=== PATIENT | male | born 1955 | race Caucasian/White ===

== ENCOUNTER 2017-08-05 13:00 | Inpatient (IN) | payer OTHER ==
[2017-08-08 08:07] LABS: Cardiac Risk 3.5 (Less than 4.5)
[2017-09-19 10:13] VITALS: BMI 37.1
[2017-09-24] MEDS ORDERED: Sodium Chloride 0.9% 100 ML ONE (06:04)
[2017-09-24] MEDS ORDERED: CEFAZOLIN/Water 2 GM/20 ML SYRINGE ONE (06:04)
[2017-09-24] MEDS ORDERED: CEFAZOLIN 1 GM VIAL ONE (06:04)
[2017-09-24] MEDS ORDERED: Midazolam HCl 2 mg/2 ml Vial ONE (06:27)
[2017-09-24] MEDS ORDERED: Fentanyl 100 MCG/2 ML VIAL ONE (06:27)
[2017-09-24] MEDS ORDERED: Vancomycin HCl 1.5 GM in Sodium Chloride 0.9% 250 ML 300 ML IVPB SCH (06:30)
[2017-09-24] MEDS ORDERED: Zolpidem Tartrate 5 MG TAB PO PRN ×2 (07:05→09:00)
[2017-09-24] MEDS ORDERED: Ondansetron HCl/PF 4 MG/2 ML Vial IVP PRN ×3 (07:05→09:00)
[2017-09-24] MEDS ORDERED: HYDROcodone/Acetaminophen 10/325 mg Tablet PO PRN (07:05)
[2017-09-24] MEDS ORDERED: traMADol HCl 50 MG TAB PO PRN ×3 (07:05→09:00)
[2017-09-24] MEDS ORDERED: Promethazine HCl 25 MG/ML VIAL IM PRN ×3 (07:05→09:00)
[2017-09-24] MEDS ORDERED: Fentanyl 100 MCG/2 ML VIAL IV PRN (07:06)
[2017-09-24] MEDS ORDERED: Morphine 10 MG/ML VIAL ONE (07:34)
[2017-09-24] MEDS ORDERED: Promethazine HCl 25 MG/ML VIAL SLOW IVP PRN (07:46)
[2017-09-24] MEDS ORDERED: Bupivacaine PF 0.5% 30 ML VIAL ONE (08:13)
[2017-09-24] MEDS ORDERED: Tranexamic Acid 1,000 MG in Sodium Chloride 0.9% 100 ML IVPB SCH (09:00)
[2017-09-24] MEDS ORDERED: diphenhydrAMINE 25 MG CAP PO PRN (09:00)
[2017-09-24] MEDS ORDERED: Acetaminophen 325 MG TAB PO PRN (09:00)
[2017-09-24] MEDS ORDERED: Nitroglycerin 0.4 MG TAB (25 Tab Bottle) SL PRN (09:02)
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
--- NOTE | 2017-09-24 10:13 | RAD ---
LEFT KNEE TWO VIEWS: INDICATIONS: Postoperative evaluation. Knee replacement. FINDINGS: There is community acquired pneumonia osseous deformity with prior hardware tracks at the imaged dist al femur. There is a total left knee arthroplasty in place without evidence of hardware complication . Expected post procedure findings are seen, regionally. IMPRESSION: 1. Postoperative left knee without acute hardware complication. 2. Chronic deformity of the imaged distal left femur. POS: [facility]
[2017-09-24] MEDS ORDERED: Sodium Chloride 0.65% Nasal 44 ML BOT EA NARE PRN (10:33)
[2017-09-24] MEDS ORDERED: Loratadine 10 MG TAB PO PRN (10:33)
[2017-09-24] MEDS ORDERED: Diabetic Tussin 200 MG/10 ML UDCUP PO PRN (10:33)
[2017-09-24] MEDS ORDERED: Ondansetron ODT 4 MG TAB PO PRN (10:33)
[2017-09-24] MEDS ORDERED: Mag-Al 1200 mg/1200 mg/30 ML UDCUP PO PRN (10:33)
[2017-09-24] MEDS ORDERED: Milk Of Magnesia 30 ML UDCUP PO PRN (10:33)
[2017-09-24] MEDS ORDERED: Artificial Tear Sol 15 ML BOT EA EYE PRN (10:33)
[2017-09-24] MEDS ORDERED: Eucerin (Mineral Oil/Petrolatum,White) 30 gm Jar TOP PRN (10:33)
[2017-09-24] MEDS ORDERED: Bisacodyl 10 MG SUPP PR PRN (10:33)
[2017-09-24] MEDS: Aspirin 81 mg Enteric Coated Tablet PO SCH ×2 (10:43→20:13)
[2017-09-24] MEDS: Senokot S 8.6-50 MG TAB PO SCH ×2 (10:44→20:11)
[2017-09-24] MEDS: Multivitamin W/ Minerals 1 TAB PO SCH (10:44)
[2017-09-24] MEDS: Ferrous Gluconate 324 MG TAB PO SCH ×2 (10:44→20:12)
[2017-09-24] MEDS: Sodium Chloride 0.9% 1,000 ML IV SCH ×2 (10:45→18:08)
[2017-09-24] MEDS ORDERED: Bupivacaine 0.25% HCL 30 ML VIAL ONE (11:52)
[2017-09-24] MEDS ORDERED: Ropivacaine 0.5% HCl/PF (150 MG/30 ML VIAL) ONE (11:52)
[2017-09-24] MEDS ORDERED: Ketorolac Tromethamine 30 MG/ML VIAL IVP SCH (12:00)
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
[2017-09-24] MEDS ORDERED: Ketorolac Tromethamine 30 MG/ML VIAL ONE (13:28)
[2017-09-24] MEDS ORDERED: PHENYLEPHRINE-NS 100 MCG/ML 10 ML SYRINGE ONE (13:28)
[2017-09-24] MEDS ORDERED: Lidocaine 1% PF 5 ML VIAL ONE (13:28)
[2017-09-24] MEDS ORDERED: PROPOFOL 200 MG/20 ML VIAL ONE (13:28)
[2017-09-24] MEDS: Ketorolac Tromethamine 30 MG/ML VIAL IM SCH ×2 (14:02→21:15)
[2017-09-24] MEDS: Acetaminophen 500 MG TAB PO SCH ×2 (14:02→21:15)
[2017-09-24] MEDS: CEFAZOLIN/Water 2 GM/20 ML SYRINGE SLOW IVP SCH ×2 (14:06→21:15)
[2017-09-24] MEDS: Atorvastatin Calcium 40 MG TAB PO SCH (20:12)
[2017-09-24] MEDS: Famotidine 20 MG TAB PO SCH (20:12)
[2017-09-24] MEDS: Lisinopril 10 MG TAB PO SCH (20:13)
[2017-09-24] MEDS ORDERED: Aspirin 81 mg Enteric Coated Tablet PO SCH (21:00)
[2017-09-24] MEDS: Bupivacaine 0.5% 50 ML in Sodium Chloride 0.9% 50 ML NERVE BLCK SCH (21:08)
[2017-09-25 04:59] LABS: Hemoglobin 11.1 g/dL (14.0-18.0); Mean Corpuscular HGB CONC 34.1 g/dL (32.0-36.0); Mean Corpuscular Hemoglobin 33.7 pg (27.0-31.0); Mean Corpuscular Volume 98.8 fl (80.0-94.0); Mean Platelet Volume 6.7 fL (7.4-10.4); Platelet Count 104 thou/uL (130-400); RBC Distribution Width 11.8 % (11.5-14.5); Red Blood Cell (RBC) Count 3.31 mill/uL (4.70-6.10); White Blood Cell (WBC) Count 4.3 thou/uL (4.8-10.8)
[2017-09-25] MEDS: Sodium Chloride 0.9% 1,000 ML IV SCH ×2 (05:44→14:06)
[2017-09-25] MEDS: Ketorolac Tromethamine 30 MG/ML VIAL IM SCH ×3 (05:46→20:31)
[2017-09-25] MEDS: Acetaminophen 500 MG TAB PO SCH ×3 (05:48→20:27)
[2017-09-25] MEDS: Multivitamin W/ Minerals 1 TAB PO SCH (07:36)
[2017-09-25] MEDS: Senokot S 8.6-50 MG TAB PO SCH ×2 (07:36→20:24)
[2017-09-25] MEDS: Famotidine 20 MG TAB PO SCH ×2 (07:36→20:25)
[2017-09-25] MEDS: Ferrous Gluconate 324 MG TAB PO SCH ×2 (07:36→20:24)
[2017-09-25] MEDS: Aspirin 81 mg Enteric Coated Tablet PO SCH ×2 (07:38→20:24)
--- NOTE | 2017-09-25 10:39 | PDOC.PN ---
- Subjective Encounter Start Date: 09/25/17 Encounter Start Time: 08:10 -: old records requested/rev Patient seen and examined for medical problems. No new complaints. No overnight events - Objective Resuscitation Status: Resuscitation Status FULL:Full Resuscitation MAR Reviewed: Yes Vital Signs & Weight: Vital Signs (12 hours) Temp Pulse Resp BP BP Pulse Ox 09/25/17 08:00 98.3 F 64 16 09/25/17 07:25 98.3 F 64 16 144/81 H 94 L 09/25/17 05:00 98.0 F 64 18 143/74 H 95 09/24/17 23:55 98.1 F 71 16 126/67 93 L Weight Weight 230 lb I&O: 09/24/17 09/25/17 09/26/17 06:59 06:59 06:59 Intake Total 1700 780 Output Total 400 850 Balance 1300 -70 Result Diagrams: 09/25/17 03:21 Phys Exam - Physical Examination Constitutional: NAD HEENT: PERRLA, moist MMs, sclera anicteric Neck: no JVD, supple Respiratory: no wheezing, no rales, no rhonchi Cardiovascular: RRR, no significant murmur, no rub Gastrointestinal: soft, non-tender, no distention, positive bowel sounds Musculoskeletal: no edema, pulses present left knee with dressing, nerve block+ Neurological: non-focal, normal sensation, moves all 4 limbs Psychiatric: normal affect, A&O x 3 Skin: no rash, normal turgor Dx/Plan (1) Status post total left knee replacement Code(s): Z96.652 - PRESENCE OF LEFT ARTIFICIAL KNEE JOINT Status: Acute (2) CAD (coronary artery disease) Code(s): I25.10 - ATHSCL HEART DISEASE OF [place] CORONARY ARTERY W/O ANG PCTRS Status: Chronic (3) Dyslipidemia Code(s): E78.5 - HYPERLIPIDEMIA, UNSPECIFIED Status: Chronic (4) Hypertension Code(s): I10 - ESSENTIAL (PRIMARY) HYPERTENSION Status: Chronic (5) Macrocytic anemia Code(s): D53.9 - NUTRITIONAL ANEMIA, UNSPECIFIED Status: Chronic (6) Obesity (BMI 30-39.9) Code(s): E66.9 - OBESITY, UNSPECIFIED Status: Chronic - Plan cont current plan of care, PT/OT * continue aspirin for DVT prophylaxis * continue pepcid for GI prophylaxis * Nerve block as per anesthesia * continue ferrous gluconate * pain controlled with current pain meds. * PT/OT as per [facility] protocol * medication reviewed as below * symptomatic treatment * discharge based on primary team * resume home meds on discharge Review of Systems - Review of Systems Eyes: negative: Pain, Vision Change, Conjunctivae Inflammation, Eyelid Inflammation, Redness, Other ENT: negative: Ear Pain, Ear Discharge, Nose Pain, Nose Discharge, Nose Congestion, Mouth Pain, Mouth Swelling, Throat Pain, Throat Swelling, Other Respiratory: negative: Cough, Dry, Shortness of Breath, Hemoptysis, SOB with Excertion, Pleuritic Pain, Sputum, Wheezing Cardiovascular: negative: chest pain, palpitations, orthopnea, paroxysmal nocturnal dyspnea, edema, light headedness, other Gastrointestinal: negative: Nausea, Vomiting, Abdominal Pain, Diarrhea, Constipation, Melena, Hematochezia, Other Genitourinary: negative: Dysuria, Frequency, Incontinence, Hematuria, Retention , Other Musculoskeletal: negative: Neck Pain, Shoulder Pain, Arm Pain, Back Pain, Hand Pain, Leg Pain, Foot Pain, Other Skin: negative: Rash, Lesions, Nitish, Bruising, Other - Medications/Allergies Allergies/Adverse Reactions: Allergies Allergy/AdvReac Type Severity Reaction Status Date / Time warfarin sodium Allergy Hives Verified 08/06/17 15:37 [From Coumadin] Medications: Current Medications Acetaminophen (Tylenol) 650 mg PO Q4H PRN PRN Reason: ARGUELLES/ T > 101F; Mild Pain (1-3) Acetaminophen (Tylenol) 1,000 mg PO Q8HR [facility] Last Admin: 09/25/17 05:48 Dose: Not Given Hydrocodone Bitart/Acetaminophen ([place] 10/325) 1 tab PO Q4H PRN PRN Reason: Pain (1-3) Hydrocodone Bitart/Acetaminophen ([place] 10/325) 2 tab PO Q4H PRN PRN Reason: PAIN (4-6) Al Hydroxide/Mg Hydroxide (Maalox) 15 ml PO Q4H PRN PRN Reason: Heartburn or Indigestion Artificial Tears (Tears Renewed 15ml Bottle) 0 drop EA EYE PRN PRN PRN Reason: Dry Eyes Aspirin (Ecotrin) 81 mg PO BID [facility] Last Admin: 09/25/17 07:38 Dose: 81 mg Atorvastatin Calcium (Lipitor) 80 mg PO HS [facility] Last Admin: 09/24/17 20:12 Dose: 80 mg Bisacodyl (Dulcolax) 10 mg IN DAILYPRN PRN PRN Reason: Constipation Diphenhydramine HCl (Benadryl) 25 mg PO Q6H PRN PRN Reason: Itching Famotidine (Pepcid) 20 mg PO BID [facility] Last Admin: 09/25/17 07:36 Dose: 20 mg Fentanyl (Sublimaze) 50 mcg IV Q1H PRN PRN Reason: BREAKTHROUGH PAIN Ferrous Gluconate (Fergon) 324 mg PO BID [facility] Last Admin: 09/25/17 07:36 Dose: 324 mg Guaifenesin (Robitussin Sf) 200 mg PO Q4H PRN PRN Reason: Cough Bupivacaine HCl 50 ml/ Sodium (Chloride) 100 mls @ 0 mls/hr NERVE BLCK INF [facility] PRN Reason: As Directed Last Admin: 09/24/17 21:08 Dose: 100 mls Sodium Chloride (Normal Saline 0.9%) 1,000 mls @ 100 mls/hr IV .Q10H [facility] Last Admin: 09/25/17 05:44 Dose: Not Given Iron/Minerals/Multivitamins (Theragran M) 1 tab PO DAILY [facility] Last Admin: 09/25/17 07:36 Dose: 1 tab Ketorolac Tromethamine (Toradol) 30 mg IM Q8HR [facility] Stop: 09/26/17 14:01 Last Admin: 09/25/17 05:46 Dose: 30 mg Lisinopril (Zestril) 10 mg PO [facility] Last Admin: 09/24/17 20:13 Dose: 10 mg Loratadine (Claritin) 10 mg PO DAILYPRN PRN PRN Reason: Sinus Symptoms Magnesium Hydroxide (Milk Of Magnesium) 30 ml PO DAILYPRN PRN PRN Reason: Constipation Metoprolol Succinate (Toprol Xl) 100 mg PO [facility] Last Admin: 09/24/17 20:13 Dose: 100 mg Mineral Oil/White Petrolatum (Eucerin Cream) 0 gm TOP BIDPRN PRN PRN Reason: Dry Skin Nitroglycerin (Nitrostat) 0.4 mg SL Q5MIN PRN PRN Reason: Chest Pain Ondansetron HCl (Zofran) 4 mg IVP Q6H PRN PRN Reason: Nausea/Vomiting Ondansetron HCl (Zofran Odt) 4 mg PO Q6H PRN PRN Reason: Nausea/Vomiting Promethazine HCl (Phenergan) 12.5 mg IM Q4H PRN PRN Reason: Nausea/Vomiting Senna/Docusate Sodium (Senokot S) 2 tab PO BID [facility] Last Admin: 09/25/17 07:36 Dose: 2 tab Sodium Chloride (Flush - Normal Saline) 10 ml IVF PRN PRN PRN Reason: Saline Flush Sodium Chloride ([place] Nasal [place] 0.65%) 0 ml EA NARE QIDPRN PRN PRN Reason: Nasal Congestion Tramadol HCl (Ultram) 100 mg PO Q6H PRN PRN Reason: Mild Pain (1-3) Last Admin: 09/25/17 07:37 Dose: 100 mg Zolpidem Tartrate (Ambien) 5 mg PO HSPRN PRN PRN Reason: Insomnia
[2017-09-25] MEDS: HYDROcodone/Acetaminophen 10/325 mg Tablet PO PRN ×2 (11:35→20:25)
[2017-09-25] MEDS: Bupivacaine 0.5% 50 ML in Sodium Chloride 0.9% 50 ML NERVE BLCK SCH (11:35)
[2017-09-25] MEDS: Atorvastatin Calcium 40 MG TAB PO SCH (20:25)
[2017-09-25] MEDS: Lisinopril 10 MG TAB PO SCH (20:25)
[2017-09-26] MEDS: Sodium Chloride 0.9% 1,000 ML IV SCH ×2 (00:51→10:04)
[2017-09-26] MEDS: Bupivacaine 0.5% 50 ML in Sodium Chloride 0.9% 50 ML NERVE BLCK SCH (01:44)
[2017-09-26] MEDS: Ketorolac Tromethamine 30 MG/ML VIAL IM SCH ×2 (05:16→16:56)
[2017-09-26] MEDS: Acetaminophen 500 MG TAB PO SCH ×2 (05:17→10:05)
[2017-09-26 06:01] LABS: Mean Corpuscular HGB CONC 34.3 g/dL (32.0-36.0); Mean Corpuscular Hemoglobin 33.9 pg (27.0-31.0); Mean Corpuscular Volume 98.9 fl (80.0-94.0); Mean Platelet Volume 7.1 fL (7.4-10.4); Platelet Count 145 thou/uL (130-400); RBC Distribution Width 11.9 % (11.5-14.5); Red Blood Cell (RBC) Count 3.53 mill/uL (4.70-6.10); White Blood Cell (WBC) Count 6.4 thou/uL (4.8-10.8)
[2017-09-26] MEDS: Senokot S 8.6-50 MG TAB PO SCH (08:15)
[2017-09-26] MEDS: Aspirin 81 mg Enteric Coated Tablet PO SCH (08:16)
[2017-09-26] MEDS: Multivitamin W/ Minerals 1 TAB PO SCH (08:16)
[2017-09-26] MEDS: Famotidine 20 MG TAB PO SCH (08:16)
[2017-09-26] MEDS: HYDROcodone/Acetaminophen 10/325 mg Tablet PO PRN (08:16)
[2017-09-26] MEDS: Ferrous Gluconate 324 MG TAB PO SCH (08:16)
--- NOTE | 2017-09-26 10:22 | PDOC.PN ---
- Subjective Encounter Start Date: 09/26/17 Encounter Start Time: 07:45 Patient seen and examined. No new complaints. No overnight events - Objective Resuscitation Status: Resuscitation Status FULL:Full Resuscitation MAR Reviewed: Yes Vital Signs & Weight: Vital Signs (12 hours) Temp Pulse Resp BP Pulse Ox 09/26/17 09:52 98.1 F 63 18 09/26/17 07:40 98.1 F 63 18 135/72 97 09/26/17 04:14 97.8 F 59 L 18 127/72 96 09/26/17 00:46 98.1 F 72 16 132/76 93 L Weight Admit Weight 230 lb Weight 230 lb I&O: 09/25/17 09/26/17 09/27/17 06:59 06:59 06:59 Intake Total 1700 2420 Output Total 400 3450 Balance 1300 -1030 Result Diagrams: 09/26/17 05:31 Phys Exam - Physical Examination Constitutional: NAD HEENT: PERRLA, moist MMs, sclera anicteric Neck: no JVD, supple Respiratory: no wheezing, no rales, no rhonchi Cardiovascular: RRR, no significant murmur, no rub Gastrointestinal: soft, non-tender, no distention, positive bowel sounds Musculoskeletal: no edema, pulses present left knee with dressing, nerve block+ Neurological: non-focal, normal sensation, moves all 4 limbs Psychiatric: normal affect, A&O x 3 Skin: no rash, normal turgor Dx/Plan (1) Status post total left knee replacement Code(s): Z96.652 - PRESENCE OF LEFT ARTIFICIAL KNEE JOINT Status: Acute (2) CAD (coronary artery disease) Code(s): I25.10 - ATHSCL HEART DISEASE OF [place] CORONARY ARTERY W/O ANG PCTRS Status: Chronic (3) Dyslipidemia Code(s): E78.5 - HYPERLIPIDEMIA, UNSPECIFIED Status: Chronic (4) Hypertension Code(s): I10 - ESSENTIAL (PRIMARY) HYPERTENSION Status: Chronic (5) Macrocytic anemia Code(s): D53.9 - NUTRITIONAL ANEMIA, UNSPECIFIED Status: Chronic (6) Obesity (BMI 30-39.9) Code(s): E66.9 - OBESITY, UNSPECIFIED Status: Chronic - Plan cont current plan of care, PT/OT * continue aspirin for DVT prophylaxis * continue pepcid for GI prophylaxis * Nerve block will be removed today. * continue ferrous gluconate * pain controlled with current pain meds. * PT/OT as per [facility] protocol, outpt rehab after discharge * medication reviewed as below * symptomatic treatment * discharge today based on primary team * resume home meds on discharge. * will sign off today Review of Systems - Review of Systems Eyes: negative: Pain, Vision Change, Conjunctivae Inflammation, Eyelid Inflammation, Redness, Other ENT: negative: Ear Pain, Ear Discharge, Nose Pain, Nose Discharge, Nose Congestion, Mouth Pain, Mouth Swelling, Throat Pain, Throat Swelling, Other Respiratory: negative: Cough, Dry, Shortness of Breath, Hemoptysis, SOB with Excertion, Pleuritic Pain, Sputum, Wheezing Cardiovascular: negative: chest pain, palpitations, orthopnea, paroxysmal nocturnal dyspnea, edema, light headedness, other Gastrointestinal: negative: Nausea, Vomiting, Abdominal Pain, Diarrhea, Constipation, Melena, Hematochezia, Other Genitourinary: negative: Dysuria, Frequency, Incontinence, Hematuria, Retention , Other Musculoskeletal: negative: Neck Pain, Shoulder Pain, Arm Pain, Back Pain, Hand Pain, Leg Pain, Foot Pain, Other Skin: negative: Rash, Lesions, Nitish, Bruising, Other - Medications/Allergies Allergies/Adverse Reactions: Allergies Allergy/AdvReac Type Severity Reaction Status Date / Time warfarin sodium Allergy Hives Verified 08/06/17 15:37 [From Coumadin] Medications: Current Medications Acetaminophen (Tylenol) 650 mg PO Q4H PRN PRN Reason: ARGUELLES/ T > 101F; Mild Pain (1-3) Acetaminophen (Tylenol) 1,000 mg PO Q8HR [facility] Last Admin: 09/26/17 10:05 Dose: Not Given Hydrocodone Bitart/Acetaminophen ([place] 10/325) 1 tab PO Q4H PRN PRN Reason: Pain (1-3) Hydrocodone Bitart/Acetaminophen ([place] 10/325) 2 tab PO Q4H PRN PRN Reason: PAIN (4-6) Last Admin: 09/26/17 08:16 Dose: 2 tab Al Hydroxide/Mg Hydroxide (Maalox) 15 ml PO Q4H PRN PRN Reason: Heartburn or Indigestion Artificial Tears (Tears Renewed 15ml Bottle) 0 drop EA EYE PRN PRN PRN Reason: Dry Eyes Aspirin (Ecotrin) 81 mg PO BID [facility] Last Admin: 09/26/17 08:16 Dose: 81 mg Atorvastatin Calcium (Lipitor) 80 mg PO HS [facility] Last Admin: 09/25/17 20:25 Dose: 80 mg Bisacodyl (Dulcolax) 10 mg [place] DAILYPRN PRN PRN Reason: Constipation Diphenhydramine HCl (Benadryl) 25 mg PO Q6H PRN PRN Reason: Itching Famotidine (Pepcid) 20 mg PO BID [facility] Last Admin: 09/26/17 08:16 Dose: 20 mg Fentanyl (Sublimaze) 50 mcg IV Q1H PRN PRN Reason: BREAKTHROUGH PAIN Ferrous Gluconate (Fergon) 324 mg PO BID [facility] Last Admin: 09/26/17 08:16 Dose: 324 mg Guaifenesin (Robitussin Sf) 200 mg PO Q4H PRN PRN Reason: Cough Bupivacaine HCl 50 ml/ Sodium (Chloride) 100 mls @ 0 mls/hr NERVE BLCK INF [facility] PRN Reason: As Directed Last Admin: 09/26/17 01:44 Dose: 100 mls Sodium Chloride (Normal Saline 0.9%) 1,000 mls @ 100 mls/hr IV .Q10H [facility] Last Admin: 09/26/17 10:04 Dose: Not Given Iron/Minerals/Multivitamins (Theragran M) 1 tab PO DAILY [facility] Last Admin: 09/26/17 08:16 Dose: 1 tab Ketorolac Tromethamine (Toradol) 30 mg IM Q8HR [facility] Stop: 09/26/17 14:01 Last Admin: 09/26/17 05:16 Dose: 30 mg Lisinopril (Zestril) 10 mg PO [facility] Last Admin: 09/25/17 20:25 Dose: 10 mg Loratadine (Claritin) 10 mg PO DAILYPRN PRN PRN Reason: Sinus Symptoms Magnesium Hydroxide (Milk Of Magnesium) 30 ml PO DAILYPRN PRN PRN Reason: Constipation Metoprolol Succinate (Toprol Xl) 100 mg PO [facility] Last Admin: 09/25/17 20:25 Dose: 100 mg Mineral Oil/White Petrolatum (Eucerin Cream) 0 gm TOP BIDPRN PRN PRN Reason: Dry Skin Nitroglycerin (Nitrostat) 0.4 mg SL Q5MIN PRN PRN Reason: Chest Pain Ondansetron HCl (Zofran) 4 mg IVP Q6H PRN PRN Reason: Nausea/Vomiting Ondansetron HCl (Zofran Odt) 4 mg PO Q6H PRN PRN Reason: Nausea/Vomiting Promethazine HCl (Phenergan) 12.5 mg IM Q4H PRN PRN Reason: Nausea/Vomiting Senna/Docusate Sodium (Senokot S) 2 tab PO BID [facility] Last Admin: 09/26/17 08:15 Dose: 2 tab Sodium Chloride (Flush - Normal Saline) 10 ml IVF PRN PRN PRN Reason: Saline Flush Sodium Chloride ([place] Nasal [place] 0.65%) 0 ml EA NARE QIDPRN PRN PRN Reason: Nasal Congestion Tramadol HCl (Ultram) 100 mg PO Q6H PRN PRN Reason: Mild Pain (1-3) Last Admin: 09/25/17 07:37 Dose: 100 mg Zolpidem Tartrate (Ambien) 5 mg PO HSPRN PRN PRN Reason: Insomnia
[2017-09-26 11:57] VITALS: BP 123/75; TEMP 98.2
--- NOTE | 2017-09-26 12:34 | DIS ---
PRIMARY CARE PHYSICIAN: Dr. Felton Harris. DATE OF ADMISSION: 09/24/2017 DATE OF DISCHARGE: 09/26/2017 DISCHARGE DISPOSITION: Home. PRIMARY DISCHARGE DIAGNOSIS: Left total knee replacement. SECONDARY DISCHARGE DIAGNOSES: Coronary artery disease, hypertension, dyslipidemia, macrocytic anemi a, obesity with BMI 37, osteoarthritis. PRIMARY PROCEDURE/OPERATION: Left total knee replacement. RADIOLOGICAL INVESTIGATION: Knee x-ray. SIGNIFICANT LABORATORY DATA: WBC 6.4, hemoglobin 12.0, platelets 145. DISCHARGE MEDICATIONS: Aspirin 81 mg p.o. b.i.d., Lipitor 80 mg p.o. at bedtime, [place] 1 or 2 tablet s q.4 hourly p.r.n., lisinopril 10 mg p.o. at bedtime, Toprol-XL 100 mg p.o. at bedtime, nitroglyceri n 0.4 mg sublingual p.r.n. CONTRAINDICATIONS: None. CODE STATUS: FULL CODE. INPATIENT CONSULTANTS: Dr. Nance was primary while in hospital. Sound Team was consulted for medic al comanagement. TEST RESULTS PENDING ON DISCHARGE: None. ALLERGIES: WARFARIN. DISCHARGE PLAN: Post hospital, patient will follow up with Dr. Nance on 10/07/2017 at 2:00 p.m. Rudy sin will follow up with primary care physician in 1 week. HOSPITAL COURSE: A 62-year-old male with above-mentioned medical problem who was electively admitted for left total knee replacement by Dr. Nance which was done on 09/24/2017 without any immediate com plications. Postoperatively, a [facility] Sound team was consulted for medical comanagement. Patient's all medical problems remain stable. We continued the patient's home medication while in [facility]. We treated him with aspirin for DVT prophylaxis. He did very well with [facility] protocol PT, OT. Today, patient is planned for discharge by primary team. Patient is seen and examined at bedside today. Please see my progress note from today for further de tail.
== END 2017-09-26 16:00 | disposition home or self-care (01) | DRG 470 ==
LOC: SJJU 09-24 05:36
PROVIDERS: ADMIT Orthopaedic Surgery; ATTEND Orthopaedic Surgery
PROC: 0SRD0J9 Replacement of Left Knee Joint with Synthetic Substitute, Cemented, Open Approach (ICD-10-PCS; principal; 2017-09-24)
PROC: 8E0YXBZ Computer Assisted Procedure of Lower Extremity (ICD-10-PCS; 2017-09-24)
DX: M17.12 Unilateral primary osteoarthritis, left knee (principal); M17.32 Unilateral post-traumatic osteoarthritis, left knee; T14.90XS Injury, unspecified, sequela; X58.XXXS Exposure to other specified factors, sequela; M21.062 Valgus deformity, not elsewhere classified, left knee; M65.9 Synovitis and tenosynovitis, unspecified; I25.10 Atherosclerotic heart disease of native coronary artery without angina pectoris; I10 Essential (primary) hypertension; E78.5 Hyperlipidemia, unspecified; E66.9 Obesity, unspecified; Z68.37 Body mass index [BMI] 37.0-37.9, adult; D53.9 Nutritional anemia, unspecified; Z96.651 Presence of right artificial knee joint; Z95.5 Presence of coronary angioplasty implant and graft; Z88.8 Allergy status to other drugs, medicaments and biological substances; Z87.891 Personal history of nicotine dependence; Z71.3 Dietary counseling and surveillance
CPT/HCPCS: 36415; 80061; 85027; C1713; C1776; G8978-GP-CK; G8979-GP-CI; J0690; J1885; J2001; J2250; J2270; J2704; J2795; J3010; J3370; J3490; J7050; S0020

== ENCOUNTER 2017-08-05 13:03 | Outpatient (CLI) | payer OTHER ==
[2017-08-05 14:29] LABS: #Eosinphils 0.1 thou/uL (0.0-0.7); #Lymphocytes 1.2 thou/uL (1.20-3.40); #Monocytes 0.6 thou/uL (0.11-0.59); #Neutrophils 4.3 thou/uL (1.40-6.50); %Basophils 0.3 % (0.0-1.0); %Eosinophils 0.9 % (0.0-10.0); %Lymphocytes 19.9 % (21.0-51.0); %Monocytes 9.8 % (0.0-10.0); %Neutrophils 69.1 % (42.0-75.0); Hemoglobin 15.5 g/dL (14.0-18.0); Mean Corpuscular HGB CONC 33.7 g/dL (32.0-36.0); Mean Platelet Volume 6.7 fL (7.4-10.4); Platelet Count 216 thou/uL (130-400); RBC Distribution Width 11.8 % (11.5-14.5); Red Blood Cell (RBC) Count 4.69 mill/uL (4.70-6.10); White Blood Cell (WBC) Count 6.2 thou/uL (4.8-10.8)
[2017-08-05 14:34] LABS: INR-International Normal Ratio 0.9; Prothrombin Time 12.6 SEC (12.0-14.7)
[2017-08-05 14:37] LABS: Bilirubin Negative (Negative); Blood, Urine Negative (Negative); Clarity CLEAR (Clear); Glucose, Urine (Dipstick) Negative (Negative); Leukocyte Negative (Negative); Nitrite Negative (Negative); Protein, Urine (Dipstick) Negative (Neg-Trace); Specific Gravity, Urine 1.024 (1.002-1.036); pH, Urine 5.5 (5.0-9.0)
[2017-08-05 14:40] LABS: Bacteria/HPF None Seen HPF (None Seen); Hyaline Casts/LPF 0-3 HYALINE CAST LPF (0-3 Hyaline); RBC/HPF 0-3 HPF (0-3); Squamous Epithelial None Seen HPF (0-3); WBC/HPF None Seen HPF (0-3)
[2017-08-05 14:54] LABS: Anion Gap 14 mmol/L (10-20); BUN (Urea Nitrogen) 17 mg/dL (8.4-25.7); Calc. Creatinine Clearance 0 mL/min (70-130); Calcium 9.5 mg/dL (7.8-10.44); Carbon Dioxide 23 mmol/L (23-31); Chloride 106 mmol/L (98-107); Estimated GFR-MDRD 88; Glucose 108 mg/dL (80-115); Sodium 139 mmol/L (136-145)
== END 2017-08-05 13:04 | disposition home or self-care (01) ==
LOC: LABBT 13:03
PROVIDERS: ATTEND Orthopaedic Surgery
DX: Z01.818 Encounter for other preprocedural examination (principal); M17.12 Unilateral primary osteoarthritis, left knee; Z88.8 Allergy status to other drugs, medicaments and biological substances
CPT/HCPCS: 80048; 81001; 85025; 85610; 87081

== ENCOUNTER → 2017-08-05 | Outpatient (CLI) | payer OTHER ==
[2017-08-06 15:38] LABS: Hemoglobin 14.9 g/dL (14.0-18.0); Mean Corpuscular HGB CONC 34.2 g/dL (32.0-36.0); Mean Corpuscular Hemoglobin 33.4 pg (27.0-31.0); Mean Corpuscular Volume 97.7 fl (80.0-94.0); Mean Platelet Volume 6.7 fL (7.4-10.4); Platelet Count 192 thou/uL (130-400); RBC Distribution Width 11.6 % (11.5-14.5); Red Blood Cell (RBC) Count 4.46 mill/uL (4.70-6.10); White Blood Cell (WBC) Count 5.9 thou/uL (4.8-10.8)
--- NOTE | 2017-08-06 15:48 | RAD ---
TWO VIEWS OF THE CHEST: 08/06/17 COMPARISON: 11/18/13 HISTORY: Preoperative radiograph FINDINGS: Two views of the chest show normal sized cardiomediastinal silhouette. There is no evidence of consol idation, mass, or pleural effusion. Bone anchors are seen in the right humerus from prior right shoul alexia surgery. IMPRESSION: No evidence of acute cardiopulmonary disease. POS: [facility]
[2017-08-06 15:59] LABS: ALT (SGPT) 22 U/L (8-55); AST (SGOT) 18 U/L (5-34); Albumin 4.4 g/dL (3.4-4.8); Alkaline Phosphatase 57 U/L (40-150); Anion Gap 12 mmol/L (10-20); BUN (Urea Nitrogen) 22 mg/dL (8.4-25.7); Bilirubin, Total 1.5 mg/dL (0.2-1.2); Calc. Creatinine Clearance 0 mL/min (70-130); Calcium 9.8 mg/dL (7.8-10.44); Carbon Dioxide 25 mmol/L (23-31); Chloride 105 mmol/L (98-107); Estimated GFR-MDRD 77; Globulin 2.6 g/dL (2.4-3.5); Glucose 77 mg/dL (80-115); Potassium 3.9 mmol/L (3.5-5.1); Sodium 138 mmol/L (136-145)
--- NOTE | 2017-08-07 07:53 | EKG ---
Test Reason : Blood Pressure : / mmHG Vent. Rate : 060 BPM Atrial Rate : 060 BPM P-R Int : 146 ms QRS Dur : 100 ms QT Int : 420 ms P-R-T Axes : 028 010 002 degrees QTc Int : 420 ms Poor data quality, interpretation may be adversely affected Normal sinus rhythm Normal ECG When compared with ECG of 06-OCT-2015 10:05, No significant change was found Confirmed by ARGENIS MURDOCK ([id number]) on 08/07/2017 7:53:15 AM Referred By: LEONARDO Confirmed By:ARGENIS MURDOCK
== END ==
LOC: LABBT 13:10
PROVIDERS: ATTEND Internal Medicine Cardiovascular Disease
DX: Z01.818 Encounter for other preprocedural examination (principal); M17.12 Unilateral primary osteoarthritis, left knee; Z88.8 Allergy status to other drugs, medicaments and biological substances
CPT/HCPCS: 71046; 80048; 80053; 81001; 85025; 85027; 85610; 85730; 87081; 93005; 93010

== ENCOUNTER 2017-08-08 05:36 | Observation (INO) | payer OTHER ==
[2017-08-06 15:37] VITALS: BMI 37.3
[2017-08-08] MEDS ORDERED: Lidocaine 1% (PF) 30 ML VIAL ONE ×2 (06:36→07:33)
[2017-08-08] MEDS ORDERED: Heparin 10,000 UNITS/1 ML VIAL ONE (06:46)
[2017-08-08] MEDS ORDERED: Fentanyl 250 MCG/5 ML VIAL ONE (07:05)
[2017-08-08] MEDS ORDERED: Midazolam HCl 2 mg/2 ml Vial ONE (07:05)
[2017-08-08] MEDS ORDERED: Bivalirudin 250 MG VIAL ONE (07:28)
[2017-08-08] MEDS ORDERED: Clopidogrel Bisulfate 300 MG TAB ONE (07:32)
[2017-08-08] MEDS ORDERED: Nitroglycerin 0.4 MG TAB (25 Tab Bottle) SL PRN (08:19)
[2017-08-08] MEDS ORDERED: Morphine 4 MG/ML VIAL SLOW IVP PRN ×2 (08:19)
[2017-08-08] MEDS ORDERED: Sodium Chloride 0.9% 1,000 ML IV SCH (08:30)
[2017-08-08] MEDS ORDERED: Acetaminophen 500 MG TAB PO PRN (08:42)
[2017-08-08] MEDS ORDERED: Nitroglycerin 0.4 MG TAB (25 Tab Bottle) ONE (09:32)
[2017-08-08] MEDS ORDERED: Iopamidol 370 76% 50 ML VIAL FS ONE (09:43)
[2017-08-08] MEDS ORDERED: Iopamidol 370 76% 100 ML VIAL ONE (09:43)
[2017-08-08] MEDS: Aspirin 81 mg Enteric Coated Tablet PO SCH (13:27)
--- NOTE | 2017-08-08 15:38 | CCL ---
PROCEDURE: 1. Left heart catheterization. 2. Selective coronary arteriography. 3. Left ventriculography. 4. Stent placement in the mid to distal right coronary artery in-stent restenosis. INDICATION: Abnormal Cardiolite. Patient was brought to cardiac record label intern and right groin was prepped and draped in usual fashion. 1% lidocaine was infiltrated. A 6 Malawian sheath placed into the right femoral artery and heparin 3000 units given. A 6 Malawian angulated pigtail was inserted and pressures were obtained. Left ventriculo gram was performed using 30 mL of contrast at 12 mL per second in an OSBORNE 30 degree projection. Pres sure obtained and the pigtail was removed. 6 Malawian Kg left 4 followed by 6 Malawian Kg righ t 4 was used for coronary arteriography. Angiomax bolus and drip were given. Plavix 600 mg was given. A 6 Malawian right 4 guide catheter was inserted. A floppy choice wire was advanced to the distal right coronary artery. Rebel 4.5 x 32 mm stent was then positioned and deployed. Rebel 4.5 x 12 mm was then positioned proximal to this and o verlapping it. The more distal portion of the new stents were dilated with a 5 mm balloon. The mid portion was postdilated with a 5 mm balloon and a 5.5 mm balloon and then a 6.0 mm balloon taken up t o 5.75 mm, which was the maximum for this size stent. Balloon wire and guide catheter were then [place] and sheath sutured in place. At the beginning of the procedure, the patient did receive fentanyl 25 mg and Versed 1 mg intravenously for moderate sedation. RESULTS: PRESSURES: Aorta 126/60 mean of 85, left ventricle 124/11. LEFT VENTRICULOGRAPHY: There was normal left ventricular contractility with ejection fraction of 50-55%. CORONARY ARTERIOGRAPHY:. 1. Left main was normal. 2. The LAD had a 20% proximal stenosis. 3. 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 4. The right coronary artery had a 70% mid stenosis and a 50% distal stenosis, both of which were in -stent. INTERVENTION RESULTS: The 70% mid lesion was reduced to 10% and the 50% lesion was reduced to 0%. The largest stent was di lated to the maximum for that stent, 5.75 mm and there still was a 10% stenosis. IMPRESSION: 1. One vessel coronary artery disease (RCA). 2. Normal left ventricular function. 3. Successful stent placement in the mid to distal right coronary artery.
[2017-08-08 19:30] VITALS: TEMP 97.5
[2017-08-08] MEDS ORDERED: Atorvastatin Calcium 40 MG TAB PO SCH (21:00)
[2017-08-08] MEDS ORDERED: Lisinopril 10 MG TAB PO SCH (21:00)
[2017-08-09 06:05] LABS: #Eosinphils 0.1 thou/uL (0.0-0.7); #Monocytes 0.6 thou/uL (0.11-0.59); #Neutrophils 3.1 thou/uL (1.40-6.50); %Basophils 0.1 % (0.0-1.0); %Eosinophils 2.2 % (0.0-10.0); %Lymphocytes 20.1 % (21.0-51.0); %Monocytes 12.3 % (0.0-10.0); %Neutrophils 65.3 % (42.0-75.0); Hemoglobin 13.8 g/dL (14.0-18.0); Mean Corpuscular HGB CONC 34.8 g/dL (32.0-36.0); Mean Corpuscular Hemoglobin 33.9 pg (27.0-31.0); Mean Corpuscular Volume 97.4 fl (80.0-94.0); Mean Platelet Volume 6.6 fL (7.4-10.4); Platelet Count 149 thou/uL (130-400); RBC Distribution Width 11.6 % (11.5-14.5); Red Blood Cell (RBC) Count 4.08 mill/uL (4.70-6.10); White Blood Cell (WBC) Count 4.8 thou/uL (4.8-10.8)
[2017-08-09 06:34] LABS: ALT (SGPT) 17 U/L (8-55); AST (SGOT) 14 U/L (5-34); Albumin 3.9 g/dL (3.4-4.8); Alkaline Phosphatase 50 U/L (40-150); Anion Gap 10 mmol/L (10-20); BUN (Urea Nitrogen) 16 mg/dL (8.4-25.7); Bilirubin, Total 1.2 mg/dL (0.2-1.2); Calc. Creatinine Clearance 153 mL/min (70-130); Calcium 9.2 mg/dL (7.8-10.44); Carbon Dioxide 25 mmol/L (23-31); Chloride 106 mmol/L (98-107); Estimated GFR-MDRD Greater than 90; Globulin 2.4 g/dL (2.4-3.5); Glucose 114 mg/dL (80-115); Protein, Total 6.3 g/dL (5.8-8.1); Sodium 137 mmol/L (136-145)
--- NOTE | 2017-08-09 07:01 | EKG ---
Test Reason : POST STENT Blood Pressure : / mmHG Vent. Rate : 052 BPM Atrial Rate : 052 BPM P-R Int : 138 ms QRS Dur : 114 ms QT Int : 440 ms P-R-T Axes : 039 021 027 degrees QTc Int : 409 ms Sinus bradycardia Otherwise normal ECG When compared with ECG of 06-AUG-2017 14:23, No significant change was found Confirmed by ARGENIS MURDOCK ([id number]) on 08/09/2017 7:01:27 AM Referred By: LEONARDO Confirmed By:ARGENIS MURDOCK
[2017-08-09 07:49] VITALS: BP 145/68
[2017-08-09] MEDS: Aspirin 81 mg Enteric Coated Tablet PO SCH (08:21)
[2017-08-09] MEDS ORDERED: Clopidogrel Bisulfate 75 MG TAB PO SCH (09:00)
--- NOTE | 2017-08-09 13:12 | DIS ---
DATE OF DISCHARGE: 08/09/2017 PRIMARY AUDIOLOGIST: Dr. Ambrose Van. Mr. Yung was admitted yesterday after a PCI to his right coronary artery successful with a bare me marybeth stent. He did well postoperatively. He has got no issues on his groin today. He denies any cary st pain, tightness, pressure. He would like to go home. He already has his Plavix ordered at the [facility] and his is already getting it at this time. He is doing well and the plan is to dischar ge him home. He will follow up with Dr. Van in 6 weeks. Over 30 minutes were spent bedside counseling for discharge instructions.
--- NOTE | 2017-08-10 08:27 | EKG ---
Test Reason : Blood Pressure : / mmHG Vent. Rate : 056 BPM Atrial Rate : 056 BPM P-R Int : 124 ms QRS Dur : 102 ms QT Int : 424 ms P-R-T Axes : 009 006 023 degrees QTc Int : 409 ms Sinus bradycardia Otherwise normal ECG When compared with ECG of 08-AUG-2017 09:00, No significant change was found Confirmed by ARGENIS MURDOCK ([id number]) on 08/10/2017 8:27:24 AM Referred By: LEONARDO Confirmed By:ARGENIS MURDOCK
== END 2017-08-09 13:27 | disposition home or self-care (01) ==
LOC: CCL 05:36 → 2SW 08:18
PROVIDERS: ADMIT Internal Medicine Cardiovascular Disease; ATTEND Internal Medicine Cardiovascular Disease
PROC: 4A023N7 Measurement of Cardiac Sampling and Pressure, Left Heart, Percutaneous Approach (ICD-10-PCS; principal; 2017-08-09)
DX: I25.10 Atherosclerotic heart disease of native coronary artery without angina pectoris (principal); I10 Essential (primary) hypertension; E78.5 Hyperlipidemia, unspecified; Z88.8 Allergy status to other drugs, medicaments and biological substances; Z79.899 Other long term (current) drug therapy; Z95.5 Presence of coronary angioplasty implant and graft; Z98.890 Other specified postprocedural states; Z87.891 Personal history of nicotine dependence
CPT/HCPCS: 36415; 80053; 80061; 85025; 85347; 92928; 93005; 93010; 93458; 93798; 96360; 96361; 99152; 99153; A4216; C1769; C1876; C1887; G0378; J0583; J1644; J2001; J2250; J3010

== ENCOUNTER 2017-09-19 09:10 | Outpatient (CLI) | payer OTHER ==
[2017-09-19 10:40] LABS: Bilirubin Negative (Negative); Blood, Urine Negative (Negative); Clarity CLEAR (Clear); Glucose, Urine (Dipstick) Negative (Negative); Leukocyte Negative (Negative); Nitrite Negative (Negative); Protein, Urine (Dipstick) Negative (Neg-Trace); Urobilinogen 0.2 mg/dL (0.2-1.0)
[2017-09-19 10:44] LABS: Bacteria/HPF None Seen HPF (None Seen); Hyaline Casts/LPF 0-3 HYALINE CAST LPF (0-3 Hyaline); PTT 31.7 SEC (22.9-36.1); Pathc Cast-AUWi Flag 0.14 (0-2.49); Prothrombin Time 12.9 SEC (12.0-14.7); RBC/HPF 0-3 HPF (0-3); Squamous Epithelial None Seen HPF (0-3); WBC/HPF None Seen HPF (0-3)
[2017-09-19 10:56] LABS: Anion Gap 11 mmol/L (10-20); BUN (Urea Nitrogen) 15 mg/dL (8.4-25.7); Calc. Creatinine Clearance 0 mL/min (70-130); Calcium 9.1 mg/dL (7.8-10.44); Carbon Dioxide 25 mmol/L (23-31); Chloride 105 mmol/L (98-107); Estimated GFR-MDRD Greater than 90; Glucose 111 mg/dL (80-115); Potassium 4.2 mmol/L (3.5-5.1); Sodium 137 mmol/L (136-145)
[2017-09-19 11:32] LABS: Band 2 % (5-11); Eosinophils 2 % (0-10); Hemoglobin 15.2 g/dL (14.0-18.0); Lymphocytes 39 % (21-51); MDiff Complete? YES; Macrocytosis SLIGHT = 6-15 cells (100X) (0-5/hpf); Mean Corpuscular HGB CONC 34.7 g/dL (32.0-36.0); Mean Corpuscular Hemoglobin 33.9 pg (27.0-31.0); Mean Corpuscular Volume 97.7 fl (80.0-94.0); Mean Platelet Volume 6.9 fL (7.4-10.4); Monocytes 15 % (0-10); Neutrophil 38 % (42-75); Platelet Count 192 thou/uL (130-400); RBC Distribution Width 11.8 % (11.5-14.5); Reactive Lymphocytes 2 % (0-10); Red Blood Cell (RBC) Count 4.47 mill/uL (4.70-6.10); White Blood Cell (WBC) Count 3.6 thou/uL (4.8-10.8)
--- NOTE | 2017-09-19 20:30 | EKG ---
Test Reason : Blood Pressure : / mmHG Vent. Rate : 055 BPM Atrial Rate : 055 BPM P-R Int : 112 ms QRS Dur : 102 ms QT Int : 436 ms P-R-T Axes : 049 035 -02 degrees QTc Int : 417 ms Poor data quality, interpretation may be adversely affected Sinus bradycardia Otherwise normal ECG When compared with ECG of 09-AUG-2017 07:33, No significant change was found Confirmed by STEVAN NEWMAN, . S. ([id number]) on 09/19/2017 8:30:27 PM Referred By: SOREN Confirmed By:DR. Ellie CALLES MD
== END 2017-09-19 09:11 | disposition home or self-care (01) ==
LOC: LABBT 09:10
PROVIDERS: ATTEND Orthopaedic Surgery
DX: Z01.818 Encounter for other preprocedural examination (principal); M17.12 Unilateral primary osteoarthritis, left knee
CPT/HCPCS: 80048; 81001; 85025; 85610; 85730; 86850; 86900; 86901; 87081; 93005; 93010

== ENCOUNTER 2017-10-17 04:22 | Observation (INO) | payer OTHER ==
[2017-10-17] MEDS ORDERED: Fentanyl 100 MCG/2 ML VIAL ONE (04:55)
[2017-10-17] MEDS ORDERED: Nitroglycerin 2% Ointment 1 INCH/1 GM Packet ONE (04:55)
[2017-10-17 04:59] LABS: #Basophils 0.1 thou/uL (0.0-0.2); #Eosinphils 0.7 thou/uL (0.0-0.7); #Lymphocytes 1.5 thou/uL (1.20-3.40); #Monocytes 0.5 thou/uL (0.11-0.59); #Neutrophils 2.4 thou/uL (1.40-6.50); %Basophils 1.2 % (0.0-1.0); %Eosinophils 13.1 % (0.0-10.0); %Lymphocytes 29.5 % (21.0-51.0); %Monocytes 9.4 % (0.0-10.0); %Neutrophils 46.8 % (42.0-75.0); Hemoglobin 14.2 g/dL (14.0-18.0); Mean Corpuscular HGB CONC 34.9 g/dL (32.0-36.0); Mean Corpuscular Hemoglobin 33.8 pg (27.0-31.0); Mean Platelet Volume 6.7 fL (7.4-10.4); Platelet Count 219 thou/uL (130-400); RBC Distribution Width 12.2 % (11.5-14.5); Red Blood Cell (RBC) Count 4.19 mill/uL (4.70-6.10); White Blood Cell (WBC) Count 5.1 thou/uL (4.8-10.8)
[2017-10-17 05:24] LABS: ALT (SGPT) 16 U/L (8-55); AST (SGOT) 11 U/L (5-34); Albumin 4.2 g/dL (3.4-4.8); Alkaline Phosphatase 100 U/L (40-150); Anion Gap 13 mmol/L (10-20); BUN (Urea Nitrogen) 25 mg/dL (8.4-25.7); CK (CPK) 71 U/L (30-200); Calc. Creatinine Clearance 0 mL/min (70-130); Calcium 9.5 mg/dL (7.8-10.44); Carbon Dioxide 27 mmol/L (23-31); Chloride 107 mmol/L (98-107); Estimated GFR-MDRD 67; Globulin 2.7 g/dL (2.4-3.5); Glucose 130 mg/dL (80-115); Lipase 55 U/L (8-78); Potassium 4.2 mmol/L (3.5-5.1); Protein, Total 6.9 g/dL (5.8-8.1); Sodium 143 mmol/L (136-145)
[2017-10-17 05:25] LABS: CKMB 1.4 ng/mL (0-6.6); Troponin I Less than 0.010 ng/mL (< 0.028)
[2017-10-17 06:49] VITALS: BMI 36.8
[2017-10-17] MEDS ORDERED: Ondansetron ODT 4 MG TAB PO PRN ×2 (07:13→08:21)
[2017-10-17] MEDS ORDERED: Ondansetron HCl/PF 4 MG/2 ML Vial IVP PRN (07:13)
[2017-10-17] MEDS ORDERED: Sodium Chloride 0.9% 1,000 ML IV SCH (07:15)
[2017-10-17] MEDS ORDERED: hydrALAZINE 20 MG/ML VIAL SLOW IVP PRN (08:21)
[2017-10-17] MEDS ORDERED: Acetaminophen 325 MG TAB PO PRN (08:21)
[2017-10-17] MEDS ORDERED: Mag-Al Plus 1200 MG/1200 MG/120 MG/30 ML UDCUP PO PRN (08:21)
[2017-10-17] MEDS: Aspirin 81 mg Enteric Coated Tablet PO SCH ×3 (09:03→21:43)
[2017-10-17 09:06] LABS: Troponin I 0.072 ng/mL (< 0.028)
--- NOTE | 2017-10-17 09:39 | RAD ---
PORTABLE AP CHEST: Date: 10/17/17 HISTORY: Chest pain, indigestion. COMPARISON: 08/06/17. FINDINGS: Cardiac silhouette and pulmonary vasculature are within normal limits. Linear density is seen in the left mid lung zone, more prominent on the prior study, which may be related to mild scarring and/or a telectasis. There is persistent elevation of left hemidiaphragm. Right lung is clear. Cardiac silhoue tte and pulmonary vasculature are within normal limits. Vascular calcifications seen in thoracic aort a. Dawson screws overlie the right humeral head. IMPRESSION: 1. Elevation left hemidiaphragm with linear scarring versus atelectasis in the left mid lung zone. 2. No acute cardiopulmonary process. POS: [facility]
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
--- NOTE | 2017-10-17 10:03 | CT ---
PRELIMINARY REPORT/[facility]/EMERGENTY AFTER-HOURS PROCEDURE CT Angiography Chest With Intravenous Contrast CLINICAL HISTORY: 62 years old, male; Pain; Chest pain; Prior surgery; Patient HX: Er 4; M62 reports to ed C/O cp. Pt r eports indigestion at 20: 00 took tums. Pt woke up at 0300 this morning with cp. Pt reports on his wa y here felt better so the pain is intermittent. Pt reports HX of stents placed. TECHNIQUE: Axial computed tomographic angiography images of the chest with intravenous contrast using pulmonary embolism protocol. MIP reconstructed images were created and reviewed. COMPARISON: No relevant prior studies available. FINDINGS: Pulmonary arteries: There is no evidence of peripheral filling defects within the pulmonary arterial circulation to suggest pulmonary embolism. The pulmonary arteries are not enlarged. Aorta: The aorta demonstrates mild atherosclerotic calcification. No thoracic aortic aneurysm. Lungs: There is bilateral atelectasis at the LEFT lung base. No mass. Pleural space: Normal. No significant effusion. No pneumothorax. Heart: There is moderate atherosclerotic calcification of the coronary arteries. No significant peric ardial effusion. No evidence of RV dysfunction. Mediastinum: The trachea is normal. Thyroid: The visualized thyroid gland is unremarkable. Bones/joints: There are healed left rib fractures. No dislocation. Soft tissues: Normal. Lymph nodes: Normal. No enlarged lymph nodes. Gallbladder and bile ducts: Post cholecystectomy. IMPRESSION: There is no CT evidence of acute pulmonary embolism. Thank you for allowing us to participate in the care of your patient. Dictated and Authenticated by: Chris Kwan MD 10/17/2017 6:35 AM Central Time ([place] & [place]) FINAL REPORT EMERGENCY AFTER HOURS CT ANGIOGRAM THORAX WITH IV CONTRAST AND 3D RECONSTRUCTIONS: Date: 10/17/17 HISTORY: Chest pain. Indigestion. COMPARISON: 11/19/13. IMPRESSION: 1. No CT evidence of a pulmonary embolus. 2. Prominent vascular calcifications in the coronary arteries, and to a lesser extent involving the thoracic aorta. The thoracic aorta is normal in caliber without evidence of an aortic dissection. 3. A few focal areas of mild scarring at the right lateral, as well as at the posterior aspect of th e right upper lobe, also noted on prior exam. 4. Atelectasis and/or scarring at the left lung base. 5. Cholecystectomy. 6. Remote healed left-sided rib fractures. Findings are in agreement with the preliminary report by Erin. POS: [facility]
[2017-10-17] MEDS ORDERED: ISOVUE-370 76%-LOCM 1 ML ONE (10:59)
[2017-10-17 11:19] LABS: Troponin I 0.094 ng/mL (< 0.028)
[2017-10-17] MEDS ORDERED: Nitroglycerin 0.4 MG TAB (25 Tab Bottle) SL PRN (11:42)
[2017-10-17] MEDS ORDERED: Enoxaparin Sodium 100 MG/ML SYRINGE SC SCH (11:45)
[2017-10-17 12:41] LABS: Troponin I 0.099 ng/mL (< 0.028)
[2017-10-17] MEDS ORDERED: Nitroglycerin 2% Ointment 1 INCH/1 GM Packet TOP SCH (14:00)
[2017-10-17 15:45] LABS: Troponin I 0.104 ng/mL (< 0.028)
--- NOTE | 2017-10-17 18:24 | PDOC.EVN ---
Event Note - Event Note Event Note: Mr. Khoury continued to have indigestion earlier today, and his second cardiac enzymes was higher. Will therfore continue to trend his troponins, and place him on nitrates, and aspirin, and await Cardiology evaluation.
[2017-10-17 18:37] LABS: Troponin I 0.085 ng/mL (< 0.028)
[2017-10-17] MEDS ORDERED: Atorvastatin Calcium 40 MG TAB PO SCH (21:00)
[2017-10-17] MEDS ORDERED: Lisinopril 10 MG TAB PO SCH (21:00)
[2017-10-17 21:51] LABS: Troponin I 0.069 ng/mL (< 0.028)
[2017-10-18 00:55] LABS: Troponin I 0.064 ng/mL (< 0.028)
--- NOTE | 2017-10-18 04:05 | CON ---
DATE OF CONSULTATION: 10/17/2017 HISTORY OF PRESENT ILLNESS: Zechariah Yung is a 62-year-old white male I initially evaluated in 2000. Two weeks prior to the office evaluation, he began to have chest burning lasting up to 3-4 hours. EKG showed Q-wave in lead III and he had inferoposterior ischemia on stress echo testing. He underwent cardiac catheterization, had ejection fraction of 45%-50% with moderate inferobasal hypokinesis. There was mild plaque in the LAD. 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 The right coronary artery had a 99% mid lesion and a 99% posterolateral stenosis. The posterolateral filled retrograde from the right. He underwent placement of a Tetra 2.5 x 23 mm in the right posterolateral and Tetra 4.0 x 13 mm in the mid right coronary artery. He has done well over the years. In 2015 he was having HIRSCH. Cardiolite revealed a fixed proximal inferior wall defect and proximal lateral ischemia. He then underwent cardiac catheterization on 10/06/15. Left ventricular function was normal with ejection fraction of 50%-55%. There was no significant disease in the LAD or the ramus. The circumflex arose anomalously from the right coronary artery. There was a 30% lesion in the circumflex. The right coronary artery had an 80% mid stenosis and a 70% distal stenosis. The two previous stents placed in 10/2000 showed an excellent result. He underwent placement of Synergy 4.0 x 24 mm in the distal right coronary artery lesion with reduction from 70% to 0%. Then, in the proximal lesion, Synergy 4.0 x 16, 4.0 x 16, and 4.0 x 20 were placed. All of these stents were postdilated with a 5-mm balloon. He was going to have left total knee replacement and so he underwent Lexiscan cardiolite testing in the office earlier this year. . This revealed a fixed proximal inferior wall and apical defect. He underwent cardiac catheterization on 08/08/17. Left ventricular function was normal with ejection fraction of 50- 55%. The LAD had 20% proximal stenosis. the circumflex had an anomalous origin from the RCA and had a 30% stenosis. The RCA had a 70% mid stenosis and a 50 distal stenosis. In the distal RCA, Rebel 4.5 x 32 was placed. Rebel 4.5 x 12mm stent was positioned proximal to this and overlapping the previous stent. The mid portion was post dilated to 5.75mm using a 6.0 mm balloon. Bare metal stents were used due to upcoming knee surgery. He was on Plavix for 1 month and then underwent left total knee replacement and has been doing well. Last night, he ate fried eggplant and zucchini before going to bed. He also has for the last week taken ibuprofen 800 mg t.i.d. and would take it right at bedtime on an empty stomach. He then woke up at 3:15 with chest pressure, took some Tums and may be that helped some, but ultimately decided to come to the emergency room. Total duration of his pain was 1 hour and 15 minutes. EKG did not show any acute changes. PAST MEDICAL HISTORY: Hypertension, hyperlipidemia, history of esophageal spasm. PAST SURGICAL HISTORY: Left total hip replacement, right total knee replacement , left total knee replacement, placement of coronary stents in 2000, 2016 and in 2018. MEDICATIONS AT HOME: Aspirin 81 mg b.i.d., atorvastatin 80 mg at bedtime, ibuprofen 800 mg t.i.d.-q.i.d., lisinopril 10 mg at bedtime, metoprolol 100 mg at bedtime. ALLERGIES: COUMADIN causes rash. SOCIAL HISTORY: He smoked 2 packs per day, but stopped in 1991. He occasionally drinks. FAMILY HISTORY: Negative for coronary artery disease. REVIEW OF SYSTEMS: Twelve-point review of systems is otherwise unremarkable. PHYSICAL EXAMINATION: VITAL SIGNS: Blood pressure 123/78, pulse of 59. HEENT: PERRL. NECK: Supple. CHEST: Clear. CARDIAC: S1 and S2 are normal without any S3, S4, or murmurs. ABDOMEN: Normal bowel sounds without tenderness, organomegaly. EXTREMITIES: No clubbing, cyanosis, or edema. NEUROLOGIC: Grossly intact. LABORATORY DATA: EKG revealed normal sinus rhythm with low voltage in the limb leads. Hemoglobin 14.2, hematocrit 40.7, white count 5100, platelets 219,000. Troponin I has trended up to 0.104. Sodium 143, potassium 4.2, chloride 107, carbon dioxide 27, BUN 25, creatinine 1.11, glucose 130. AST and ALT are normal. IMPRESSION: 1. Probable demand ischemia. 2. Probable gastrointestinal pain. 3. No evidence for acute coronary syndrome. At the present time, the only event that could be occurring would be acute stent thrombosis 2 months out from stent placement. He has no clinical evidence of this - no change on his EKG and has not had a dramatic increase in troponin I and his pain also resolved. Therefore, I would have to conclude that his stent is not thrombosed and at the present time, it is too early for in-stent re-stenosis, especially when one stent was 4 mm and the other stents were postdilated with a 5-mm balloon. 4. History of stent placement in 07/2017 in the right coronary artery, as well as in 2000 and 2015. 5. Hypertension. 6. Hypercholesterolemia. 7. Former smoker. PLAN: The patient will be started on proton pump inhibitor. He also was encouraged to not take ibuprofen at bedtime nor on an empty stomach. He will undergo Lexiscan Cardiolite testing in the morning, hopefully to reassure us that there is not a problem. FAUSTINA
[2017-10-18 04:15] LABS: Troponin I 0.052 ng/mL (< 0.028)
[2017-10-18] MEDS ORDERED: Regadenoson 0.4 MG/5 ML SYRINGE ONE (12:12)
[2017-10-18] MEDS: Aspirin 81 mg Enteric Coated Tablet PO SCH (12:43)
--- NOTE | 2017-10-18 13:09 | NM ---
CARDIAC SPECT: HISTORY: A 62-year-old male with chest pain, coronary artery disease, stent placement, hypertension, and dysli pidemia. TECHNIQUE: A myocardial perfusion scan was performed using the single-isotope 1-day protocol with Technetium 99m sestamibi. Ten mCi were injected intravenously for the rest exam followed by 31 mCi for the stress study. Pharmacologic stress with LexiScan is monitored and interpreted by YAYO Hampton. FINDINGS: A moderate-sized fixed defect is seen in the proximal mid inferolateral wall. No reversible defects are identified. GATED SPECT LVEF: 59%. WALL MOTION EXAM: Mild hypokinesis in the inferolateral wall. IMPRESSION: 1. No evidence of reversible ischemia. 2. Inferolateral wall scar. POS: RODRICK
[2017-10-18 15:24] VITALS: BP 150/66; TEMP 97.5
--- NOTE | 2017-10-19 01:36 | DIS ---
DATE OF ADMISSION: 10/17/2017 DATE OF DISCHARGE: 10/18/2017 CONDITION AT THE TIME OF DISCHARGE: Stable and improved. DISCHARGE DIAGNOSES: 1. Chest pain, noncardiac, likely gastroesophageal reflux disease. 2. History of coronary artery disease, status post cardiac stenting 2 months ago. 3. Hypertension. 4. Dyslipidemia. PRIMARY CARE PHYSICIAN: Felton Harris MD DISCHARGE MEDICATIONS: 1. Sublingual nitroglycerin every 5 minutes 0.4 mg as needed for chest pain. 2. Protonix 40 mg daily. 3. Resume home medications as listed in the admission H and P. No changes made. PROCEDURES DONE IN THE HOSPITAL: 1. Include CT angio of the thorax, which is negative for any pulmonary embolism. There is no eviden ce of any infiltrate either. Prominent vascular coronary calcifications are seen. 2. Nuclear medicine stress test, which shows no reversible ischemia. He has inferolateral wall scar and EF of 59%. CONSULTATION IN-HOUSE: Cardiology, Dr. Van. HISTORY OF PRESENTING ILLNESS: Mr. Yung is a very pleasant 62-year-old male with recent history o f coronary artery disease who underwent cardiac stenting x2 in 07/2017 and took Plavix for [address]; came to the hospital with complaints of chest burning for the last 3 or 4 days. Upon prese ntation, he reported that he ate some fried food before going to bed and he has also been taking ibup rofen 800 mg 3 times a day for the last couple of weeks because of his knee pain. He has recently un dergone a left total knee replacement. He did not have any EKG changes upon presentation and his car diac enzymes were unremarkable. He was admitted under observation status for further workup. Cardio logy was consulted. Please see admission history and physical for further details. HOSPITAL COURSE: The patient actually did very well and had no reoccurrence of his symptoms. Cardio logaudra saw the patient and he underwent a cardiac stress testing, which was unremarkable. There was no reversible ischemia. Dr. Van saw the patient and recommended that his symptoms most likely are from indigestion. He was instructed to come off ibuprofen completely and use alternative pain medic ations anything other than NSAIDs. At this time, he was started on Protonix as well with some improv ement in his symptoms immediately. He was seen and examined prior to discharge and has been cleared by Cardiology for discharge as well. He has no new complaints and is eager to go home and feels well. Discharge plan was discussed with the patient and his , who verbalized understanding. PHYSICAL EXAMINATION: This morning, VITAL SIGNS: Most recent temperature 97.5, pulse of 60, respirations 18, saturating 95% on room air, blood pressure 150/66. GENERAL: No acute distress, awake, alert, and oriented x3. CHEST: Clear to auscultation bilaterally. CARDIOVASCULAR: Rate and rhythm are regular. He is instructed to follow up with Cardiology as an outpatient, as well as with his primary care phys ician. He verbalized understanding.
== END 2017-10-18 16:18 | disposition home or self-care (01) ==
LOC: ERS 04:22 → 2SW 05:31 → ERS 06:22
PROVIDERS: ADMIT Hospitalist; ATTEND Hospitalist
DX: K30 Functional dyspepsia (principal); R07.89 Other chest pain; I25.10 Atherosclerotic heart disease of native coronary artery without angina pectoris; I10 Essential (primary) hypertension; E78.00 Pure hypercholesterolemia, unspecified; Z88.8 Allergy status to other drugs, medicaments and biological substances; Z79.82 Long term (current) use of aspirin; Z79.899 Other long term (current) drug therapy; Z87.891 Personal history of nicotine dependence
CPT/HCPCS: 36415; 71045; 71275; 78452; 80053; 82553; 83690; 83880; 84484; 85025; 93005; 93017; 96361; 96374; A9500; G0378; J1650; J2785; J3010

== ENCOUNTER 2019-12-18 05:39 | Day surgery (SDC) | payer OTHER ==
[2019-12-16 13:17] VITALS: BMI 37.9
[2019-12-18] MEDS ORDERED: Betamet Acet/Betamet Na Ph 30 MG/5 ML VIAL ONE (06:21)
[2019-12-18] MEDS ORDERED: Bacitracin Zinc Ointment 30 gm TUBE ONE (06:21)
[2019-12-18] MEDS ORDERED: Bupivacaine PF 0.5% 30 ML VIAL ONE (06:21)
[2019-12-18] MEDS ORDERED: Sodium Chloride 0.9% 10 ML ONE (06:21)
[2019-12-18] MEDS ORDERED: Fentanyl 100 MCG/2 ML VIAL ONE (06:55)
[2019-12-18] MEDS ORDERED: Midazolam HCl 2 mg/2 ml Vial ONE (06:55)
[2019-12-18] MEDS ORDERED: Nystatin Ointment 15 GM TUBE TOP SCH (08:00)
[2019-12-18] MEDS ORDERED: Ketorolac Tromethamine 30 MG/ML VIAL ONE (09:11)
[2019-12-18] MEDS ORDERED: PROPOFOL 200 MG/20 ML VIAL ONE (10:03)
[2019-12-18] MEDS ORDERED: EPHEDRINE 25 MG/5 ML SYRINGE ONE (10:03)
[2019-12-18] MEDS ORDERED: Lidocaine 1% PF 5 ML VIAL ONE (10:03)
--- NOTE | 2019-12-18 17:31 | OP ---
DATE OF PROCEDURE: 12/18/2019 FIBER WORKER: Elsi, medical student, MS3. POSTOPERATIVE DIAGNOSES: 1. Right carpal tunnel syndrome. 2. Right ring finger trigger digit. 3. Right middle finger trigger digit. 4. Right ring finger very thick flexor tenosynovium and left great toe fungal nail infection with nail dystrophy. PROCEDURE PERFORMED: 1. Left great toe nail excision with fungal cultures. 2. Right ring finger trigger digit release. 3. Right ring finger flexor digitorum superficialis and profundus radical flexor tenosynovectomy. 4. Right carpal tunnel release. SPECIMENS SENT: 1. Right ring finger flexor tenosynovium sample. 2. Left great toenail incomplete. ESTIMATED BLOOD LOSS: 10 mL. TOURNIQUET TIME: Right upper extremity 28 minutes, left lower extremity 5 minutes. COMPLICATIONS: None. FINDINGS: 1. Very tight transverse carpal ligament with only minimal constriction of median nerve. No stippling. 2. Tenosynovium of right ring finger and ring finger thickening with ring finger and middle finger tight A1 eileen. DESCRIPTION OF PROCEDURE: After successful general endotracheal anesthesia, the limb was prepped and draped. We prepped and draped both the left great toe and right upper extremity simultaneously. We then outlined the incisions in a modified Mario incisions maximizing the 2 cm space between the ring finger and the long finger longitudinal incisions. We performed the middle finger first, carried down through skin and subcutaneous tissue after exsanguination of limb and inflation of the tourniquet. We carried through skin and subcutaneous tissue, identified neurovascular bundles, retracted from the middle of the field and then in midline was the A1 eileen. On the middle finger, there was no excessive tenosynovial swelling, so we released the A1 eileen under direct visualization with a [place] blade. We then turned attention to the ring finger. We made the same incision, carried through skin and subcutaneous tissue. Then, we protected the neurovascular bundle and we visualized it. The proximal aspect of the A1 eileen had an almost 3 mm thickened tenosynovium, so we released the A1 eileen with a [place] blade as per the middle finger and then we did a radical flexor tenosynovectomy over approximately 2 cm area. We sent part of this as specimen. We inspected both flexor tendons and each finger. There was no ganglion seen. We placed a mL of Celestone in each area. Now, we turned attention to the incision outlined to the carpal tunnel, which was in line with the ring finger as far distal as Melgar's cardinal line as far proximal as 5 mm distal to the volar flexion crease. We carried the incision through skin and subcutaneous tissue, identified the palmar fascia and just barely ulnar to the palmaris longus insertion, we made our incision in transverse carpal ligament. This was done under direct visualization. First, we did it from the midpart distally, sparing the median nerve branches and then we performed under direct visualization with elevation of the proximal incision and dermis by the events and promotions assistant using a [place] blade in combination with the tenotomy scissors. It was completely free. There was no extensive flexor tenosynovium, so no tenosynovectomy was accomplished at the carpal tunnel site. The nerve had about approximately 1 cm area of narrowing without stippling at this point. We then placed 2 mL Celestone in the carpal tunnel incision. We obtained hemostasis. We closed the wound using interrupted 4-0 nylon in a simple pattern at the A1 eileen sites and interrupted 4-0 nylon in a horizontal mattress pattern at the carpal tunnel site. We placed bacitracin, Adaptic, 4 x 4, and Kerlix dressing here and turned attention to the left great toe. At the left great toe, which already had been prepped and draped, and already had Marcaine at the metatarsophalangeal block level, we exsanguinated the limb using a Vero drain, kept the pin rows tight and then we elevated the nail slowly using a combination of a [place] and a [place] elevator. Once we had done this, we sent a specimen. There was very thick fungus underneath the nail and on the nailbed, so we removed some from the nailbed, sent a toenail specimen for culture and sent a sample of the fungus on a swab for culture. We released the tourniquet, obtained hemostasis, placed bacitracin, Adaptic, 4 x 4's, a small Kerlix, and then a 3-inch Radames wrap here. A 3-inch Radames wrap was placed on the hand loosely and the patient left the operating room without evidence of anesthetic or operative complication. Job ID: [id number]
[2019-12-21 13:37] LABS: Fungus Stain Final report (.)
[2019-12-21 15:12] LABS: Fungus Stain Final report (.)
[2020-01-11 06:13] LABS: Fungus Culture Final report (.)
[2020-01-18 07:13] LABS: Fungus Culture Final report (.)
== END 2019-12-18 10:30 | disposition home or self-care (01) ==
LOC: SDC 05:39
PROVIDERS: ATTEND Orthopaedic Surgery Hand Surgery
PROC: 01N50ZZ Release Median Nerve, Open Approach (ICD-10-PCS; principal; 2019-12-18)
PROC: 0HBRXZZ Excision of Toe Nail, External Approach (ICD-10-PCS; principal; 2019-12-18)
PROC: 0LB70ZZ Excision of Right Hand Tendon, Open Approach (ICD-10-PCS; principal; 2019-12-18)
DX: G56.01 Carpal tunnel syndrome, right upper limb (principal); M65.341 Trigger finger, right ring finger; M65.331 Trigger finger, right middle finger; B35.1 Tinea unguium; M65.9 Synovitis and tenosynovitis, unspecified; J30.2 Other seasonal allergic rhinitis; Z79.82 Long term (current) use of aspirin; Z79.899 Other long term (current) drug therapy; Z88.8 Allergy status to other drugs, medicaments and biological substances
CPT/HCPCS: 87102; 87206; 88304; J0690; J0702; J1885; J2250; J2704; J3010; J3490; S0020

== ENCOUNTER 2020-06-08 11:36 | Outpatient (CLI) | payer OTHER ==
--- NOTE | 2020-06-08 12:02 | RAD ---
Chest 2 views HISTORY: Dyspnea. COMPARISON: 03/10/2018. FINDINGS: Cardiac silhouette and pulmonary vasculature are unremarkable mediastinum is midline with a ortic and coronary artery calcification. Linear scarring at the left base is unchanged from the prior exam. No confluent airspace consolidation, pneumothorax, or pleural fluid. Postoperative changes right shoulder. IMPRESSION : No acute abnormalities are demonstrated.
== END 2020-06-08 11:37 | disposition home or self-care (01) ==
LOC: BICRAD 11:36
PROVIDERS: ATTEND Internal Medicine
DX: R06.00 Dyspnea, unspecified (principal)
CPT/HCPCS: 71046

== ENCOUNTER 2020-06-29 05:33 | Inpatient (IN) | payer OTHER, MEDICARE ==
[2020-06-29] MEDS ORDERED: Heparin 10,000 UNITS/ 10 ML VIAL ONE (06:54)
[2020-06-29] MEDS ORDERED: Lidocaine 1% (PF) 30 ML VIAL ONE (06:54)
[2020-06-29] MEDS ORDERED: Fentanyl 100 MCG/2 ML VIAL ONE ×3 (07:01→14:04)
[2020-06-29] MEDS ORDERED: Midazolam HCl 2 mg/2 ml Vial ONE ×2 (07:02→09:00)
[2020-06-29] MEDS ORDERED: Protamine Sulfate 50 MG/5 ML VIAL ONE (07:31)
[2020-06-29] MEDS ORDERED: Sodium Chloride 0.9% 200 ML IV PRN (07:41)
[2020-06-29] MEDS ORDERED: Nitroglycerin 0.4 MG TAB (25 Tab Bottle) SL PRN (07:41)
[2020-06-29] MEDS ORDERED: Acetaminophen/Codeine 30-300mg Tablet PO PRN ×2 (07:41)
[2020-06-29] MEDS ORDERED: Sodium Chloride 0.9% 1,000 ML IV SCH (07:45)
[2020-06-29] MEDS ORDERED: Albumin 5% 500 ML ONE (08:34)
[2020-06-29] MEDS ORDERED: Vecuronium 10 MG VIAL ONE ×3 (09:00→09:53)
[2020-06-29] MEDS ORDERED: Midazolam HCl 5 mg/5 ml Vial ONE (09:00)
[2020-06-29] MEDS ORDERED: Dexmedetomidine 200 MCG/2 ML VIAL ONE (09:00)
[2020-06-29] MEDS ORDERED: PHENYLEPHRINE-NS 100 MCG/ML 10 ML SYRINGE ONE (09:53)
[2020-06-29] MEDS ORDERED: Potassium Chloride 60 MEQ/30 ML VIAL ONE (09:53)
[2020-06-29] MEDS ORDERED: Aminocaproic Acid 5 GM/20 ML VIAL ONE (09:53)
[2020-06-29] MEDS ORDERED: ePHEDrine 50 MG/ML VIAL ONE (09:53)
[2020-06-29] MEDS ORDERED: Heparin 30,000 units/30 ml VIAL ONE (09:53)
[2020-06-29] MEDS ORDERED: Magnesium Sulfate 1 GM/2 ML VIAL ONE (09:53)
[2020-06-29] MEDS ORDERED: Ketorolac Tromethamine 30 MG/ML VIAL ONE (09:53)
[2020-06-29] MEDS ORDERED: Glycopyrrolate 0.2 MG/ML 5 ML SYRINGE ONE (09:53)
[2020-06-29] MEDS ORDERED: Ondansetron PF 4 MG/2 ML Vial ONE (09:53)
[2020-06-29] MEDS ORDERED: Mannitol 12.5 GM/50 ML ONE (09:53)
[2020-06-29] MEDS ORDERED: Protamine Sulfate 250 MG/25 ML VIAL ONE (09:53)
[2020-06-29] MEDS ORDERED: Cardioplegic Soln 1,000 ML BAG ONE (09:53)
[2020-06-29] MEDS ORDERED: Albuterol Sulfate HFA (OR ONLY) ONE ×2 (09:53→11:58)
[2020-06-29] MEDS ORDERED: Dexamethasone 20 MG/5 ML VIAL ONE (09:53)
[2020-06-29] MEDS ORDERED: Lidocaine 2% PF 100 mg/5 ml Syringe ONE (09:53)
[2020-06-29] MEDS ORDERED: Calcium Chloride 1 GM/10 ML Abboject SYRINGE ONE (09:53)
[2020-06-29] MEDS ORDERED: Papaverine 60 MG/2 ML VIAL ONE (09:53)
[2020-06-29] MEDS ORDERED: Lidocaine 1% PF 5 ML VIAL ONE ×2 (09:53)
[2020-06-29] MEDS ORDERED: Thrombin 5000 UNITS/5 ML VIAL ONE (09:53)
[2020-06-29] MEDS ORDERED: Nitroglycerin 50 MG/250 ML BOT ONE (09:53)
[2020-06-29] MEDS ORDERED: Sodium Bicarb 50 MEQ/50 ML Abboject 8.4% SYRINGE ONE (09:53)
[2020-06-29] MEDS ORDERED: Iopamidol 370 76% 50 ML VIAL FS ONE (10:49)
[2020-06-29] MEDS ORDERED: Insulin Regular 300 UNITS/3 ML VIAL ONE (10:49)
[2020-06-29] MEDS ORDERED: Iopamidol 370 76% 100 ML VIAL ONE (10:49)
[2020-06-29] MEDS ORDERED: Mag-Al 1200 mg/1200 mg/30 ML UDCUP PO PRN (13:54)
[2020-06-29] MEDS ORDERED: Ondansetron PF 4 MG/2 ML Vial IVP PRN (13:54)
[2020-06-29] MEDS ORDERED: Nitroglycerin 50 MG/250 ML BOT 250 ML IVPB PRN (13:54)
[2020-06-29] MEDS ORDERED: Norepinephrine 8 MG/0.9% NS 250 ML IVPB PRN (13:54)
[2020-06-29] MEDS ORDERED: Bisacodyl 10 MG SUPP PR PRN (13:54)
[2020-06-29] MEDS ORDERED: Fentanyl 100 MCG/2 ML VIAL SLOW IVP PRN (13:54)
[2020-06-29] MEDS ORDERED: DOPamine 400 MG/D5W 250 ML 250 ML IVPB PRN (13:54)
[2020-06-29] MEDS ORDERED: Hetastarch 6% 500 ML 500 ML IVPB PRN (13:54)
[2020-06-29] MEDS ORDERED: hydrALAZINE 20 MG/ML VIAL SLOW IVP PRN (13:54)
[2020-06-29] MEDS ORDERED: Magnesium 2 GM/50 ML 2 GM in Premix Bag 1 BAG IVPB SCH (13:54)
[2020-06-29] MEDS ORDERED: Post-Op Insulin Drip Protocol IVPB ONE (13:54)
[2020-06-29] MEDS ORDERED: niCARdipine 25 MG in Sodium Chloride 0.9% 250 ML 250 ML IVPB PRN (13:54)
[2020-06-29] MEDS ORDERED: Acetaminophen 325 MG TAB PO PRN (13:54)
[2020-06-29] MEDS ORDERED: Bisacodyl 5 MG TAB PO PRN (13:54)
[2020-06-29] MEDS ORDERED: Morphine 2 MG/ML VIAL SLOW IVP PRN (13:54)
[2020-06-29] MEDS ORDERED: Promethazine HCl 25 MG/ML VIAL IM PRN (13:54)
[2020-06-29] MEDS ORDERED: Guaifenesin DM 100-10/5 ML UDCUP PO PRN (13:54)
[2020-06-29] MEDS ORDERED: Potassium Chloride 20 MEQ/100 ML PREMIX BAG IVPB PRN (13:54)
[2020-06-29] MEDS: Fentanyl 100 MCG/2 ML VIAL SLOW IVP PRN ×2 (14:05→22:17)
[2020-06-29] MEDS ORDERED: Magnesium Sulfate 3 GM in Sodium Chloride 0.9% 100 ML IVPB SCH (14:15)
[2020-06-29 14:20] LABS: #Eosinphils 0.1 thou/uL (0.0-0.7); #Lymphocytes 0.7 thou/uL (1.20-3.40); #Monocytes 0.6 thou/uL (0.11-0.59); #Neutrophils 7.9 thou/uL (1.40-6.50); %Basophils 0.3 % (0.0-1.0); %Eosinophils 0.6 % (0.0-10.0); %Lymphocytes 7.9 % (21.0-51.0); %Monocytes 6.9 % (0.0-10.0); %Neutrophils 84.4 % (42.0-75.0); Mean Corpuscular HGB CONC 33.1 g/dL (32.0-36.0); Mean Corpuscular Hemoglobin 33.5 pg (27.0-31.0); Mean Platelet Volume 7.6 fL (7.4-10.4); Platelet Count 162 thou/uL (130-400); RBC Distribution Width 11.9 % (11.5-14.5); White Blood Cell (WBC) Count 9.4 thou/uL (4.8-10.8)
[2020-06-29 14:27] LABS: INR-International Normal Ratio 1.2; Prothrombin Time 15.8 sec (12.0-14.7)
[2020-06-29] MEDS ORDERED: Albumin 5% 250 ML ONE (14:36)
[2020-06-29 14:49] LABS: Actual Bicarbonate (HCO3a) 23.2 mEq/L (22-28); Base Excess (BEa) -2.8 mEq/L (-2.0 to +3.0); CO2 Tension 45.1 mmHg (35.0-45.0); Carboxyhemoglobin (COHb) 0.2 gm% (0.0-3.0); Hemoglobin (Hb) 12.9 g/dL (14.0-18.0); O2 Tension (PaO2), arterial 139.2 mmHg (> 80.0); Potassium - ABG Lab 4.17 mmol/L (3.70-5.30); pH, Arterial 7.33 (7.35-7.45)
[2020-06-29 14:50] LABS: Puncture Site Arterial Line
[2020-06-29 14:51] LABS: ALV-art Gradient 160.925 mmHg (0-20)
[2020-06-29] MEDS ORDERED: HUMULIN R 100 UNITS in Sodium Chloride 0.9% 100 ML IVPB SCH (15:00)
[2020-06-29] MEDS ORDERED: Dextrose 50% Abboject 50 ML SYRINGE SLOW IVP PRN (15:00)
[2020-06-29] MEDS ORDERED: Dextrose 5% in Water 1,000 ML IV PRN (15:00)
[2020-06-29] MEDS ORDERED: Insulin Regular 300 UNITS/3 ML VIAL SC PRN (15:00)
[2020-06-29 15:32] LABS: Anion Gap 10 mmol/L (10-20); BUN (Urea Nitrogen) 20 mg/dL (8.4-25.7); Calc. Creatinine Clearance 150 mL/min (70-130); Calcium 8.3 mg/dL (7.8-10.44); Carbon Dioxide 24 mmol/L (23-31); Chloride 111 mmol/L (98-107); Glucose 105 mg/dL (80-115); Potassium 4.1 mmol/L (3.5-5.1); Sodium 141 mmol/L (136-145)
[2020-06-29] MEDS: Lactated Ringer's 1,000 ML IV SCH (15:32)
[2020-06-29] MEDS: CEFAZOLIN 2 GM in Premix Bag 1 BAG IVPB SCH (16:10)
[2020-06-29] MEDS: Ketorolac Tromethamine 30 MG/ML VIAL IVP SCH ×2 (18:14→23:37)
[2020-06-29 19:09] LABS: Hemoglobin 12.3 g/dL (14.0-18.0)
[2020-06-29 19:23] LABS: Potassium 4.6 mmol/L (3.5-5.1)
[2020-06-29 20:30] LABS: Hemoglobin 12.2 g/dL (14.0-18.0)
[2020-06-29] MEDS: Famotidine/PF 20 mg/2ml Vial SLOW IVP SCH (20:52)
[2020-06-29] MEDS: HYDROcodone/Acetaminophen 5/325 mg Tablet PO PRN (20:52)
[2020-06-29] MEDS ORDERED: Atorvastatin Calcium 10 MG TAB PO SCH (21:00)
[2020-06-30] MEDS: CEFAZOLIN 2 GM in Premix Bag 1 BAG IVPB SCH ×2 (00:18→07:26)
[2020-06-30] MEDS: HYDROcodone/Acetaminophen 5/325 mg Tablet PO PRN ×2 (02:56→09:06)
[2020-06-30 04:18] LABS: #Lymphocytes 0.8 thou/uL (1.20-3.40); #Monocytes 1.2 thou/uL (0.11-0.59); #Neutrophils 7.5 thou/uL (1.40-6.50); %Basophils 0.3 % (0.0-1.0); %Eosinophils 0.2 % (0.0-10.0); %Lymphocytes 8.8 % (21.0-51.0); %Monocytes 12.1 % (0.0-10.0); %Neutrophils 78.6 % (42.0-75.0); Mean Corpuscular HGB CONC 33.5 g/dL (32.0-36.0); Mean Corpuscular Hemoglobin 33.7 pg (27.0-31.0); Mean Platelet Volume 7.4 fL (7.4-10.4); Platelet Count 174 thou/uL (130-400); RBC Distribution Width 11.9 % (11.5-14.5); Red Blood Cell (RBC) Count 3.27 mill/uL (4.70-6.10); White Blood Cell (WBC) Count 9.5 thou/uL (4.8-10.8)
[2020-06-30 04:59] LABS: Anion Gap 13 mmol/L (10-20); BUN (Urea Nitrogen) 22 mg/dL (8.4-25.7); Calc. Creatinine Clearance 137 mL/min (70-130); Carbon Dioxide 23 mmol/L (23-31); Chloride 106 mmol/L (98-107); Glucose 134 mg/dL (80-115); Potassium 4.4 mmol/L (3.5-5.1); Sodium 138 mmol/L (136-145)
[2020-06-30] MEDS: Lactated Ringer's 1,000 ML IV SCH ×2 (05:42→16:56)
[2020-06-30] MEDS: Ketorolac Tromethamine 30 MG/ML VIAL IVP SCH ×3 (06:37→17:02)
[2020-06-30] MEDS: Polyethylene Glycol 3350 17 GM Packet PO SCH (07:26)
[2020-06-30] MEDS: Famotidine/PF 20 mg/2ml Vial SLOW IVP SCH (07:26)
[2020-06-30] MEDS ORDERED: Polyethylene Glycol 3350 17 GM Packet PO SCH (07:45)
[2020-06-30] MEDS ORDERED: Aspirin 325 MG TAB PO SCH (09:00)
[2020-06-30] MEDS ORDERED: FLU VACC QS2020-21(6MOS UP)/PF 60 MCG/0.5 ML SYRINGE IM ONE (15:00)
[2020-06-30] MEDS: Mometasone 200 MCG/Formoterol 5 MCG 120 PUFF INHALER INH SCH (18:53)
[2020-06-30] MEDS ORDERED: Aspirin 325 mg Enteric Coated Tablet PO SCH (19:15)
[2020-06-30] MEDS ORDERED: Potassium Chloride 10 MEQ TAB PO SCH (19:15)
[2020-06-30] MEDS: Atorvastatin Calcium 40 MG TAB PO SCH (19:57)
[2020-06-30] MEDS ORDERED: Atorvastatin Calcium 40 MG TAB PO SCH (21:00)
[2020-07-01] MEDS: Ketorolac Tromethamine 30 MG/ML VIAL IVP SCH ×5 (00:08→23:39)
[2020-07-01] MEDS ORDERED: Amiodarone 450 MG, Admixture Fee 1 EACH in Dextrose 5% in Water 250 ML IVPB SCH (06:45)
[2020-07-01] MEDS ORDERED: Amiodarone 150 MG, Admixture Fee 1 EACH in Dextrose 5% in Water 100 ML IVPB SCH (06:45)
[2020-07-01] MEDS: Mometasone 200 MCG/Formoterol 5 MCG 120 PUFF INHALER INH SCH ×2 (06:52→19:08)
[2020-07-01] MEDS ORDERED: Nitroglycerin 0.4 MG TAB (25 Tab Bottle) SL PRN (07:11)
[2020-07-01] MEDS: Potassium Chloride 10 MEQ TAB PO SCH (08:19)
[2020-07-01] MEDS: Furosemide 40 MG TAB PO SCH (08:19)
[2020-07-01] MEDS: Aspirin 325 mg Enteric Coated Tablet PO SCH (08:19)
[2020-07-01] MEDS: Polyethylene Glycol 3350 17 GM Packet PO SCH (08:20)
[2020-07-01] MEDS ORDERED: Digoxin 0.5 MG/2 ML AMP ONE (09:12)
[2020-07-01] MEDS ORDERED: Digoxin 0.5 MG/2 ML AMP SLOW IVP SCH ×2 (09:15→16:00)
[2020-07-01] MEDS ORDERED: Enoxaparin Sodium 40 MG/0.4 ML SYRINGE SC SCH (09:15)
[2020-07-01] MEDS: Atorvastatin Calcium 40 MG TAB PO SCH (21:17)
[2020-07-02] MEDS: Ketorolac Tromethamine 30 MG/ML VIAL IVP SCH ×3 (06:05→17:32)
[2020-07-02] MEDS: Mometasone 200 MCG/Formoterol 5 MCG 120 PUFF INHALER INH SCH ×2 (07:28→19:17)
[2020-07-02] MEDS: Aspirin 325 mg Enteric Coated Tablet PO SCH (08:43)
[2020-07-02] MEDS: Polyethylene Glycol 3350 17 GM Packet PO SCH (08:43)
[2020-07-02] MEDS: Potassium Chloride 10 MEQ TAB PO SCH (08:43)
[2020-07-02] MEDS: Furosemide 40 MG TAB PO SCH (08:43)
[2020-07-02] MEDS ORDERED: Amiodarone 200 MG TAB PO SCH (10:30)
[2020-07-02] MEDS ORDERED: Lisinopril 10 MG TAB PO SCH (21:00)
[2020-07-02] MEDS ORDERED: Enoxaparin Sodium 40 MG/0.4 ML SYRINGE SC SCH (21:00)
[2020-07-02] MEDS: Amiodarone 200 MG TAB PO SCH (21:08)
[2020-07-02] MEDS: Atorvastatin Calcium 40 MG TAB PO SCH (21:08)
[2020-07-03] MEDS: HYDROcodone/Acetaminophen 5/325 mg Tablet PO PRN (01:43)
[2020-07-03 06:22] VITALS: BMI 39.0
[2020-07-03] MEDS: Mometasone 200 MCG/Formoterol 5 MCG 120 PUFF INHALER INH SCH (07:12)
[2020-07-03 08:16] VITALS: TEMP 97.6
[2020-07-03] MEDS: Aspirin 325 mg Enteric Coated Tablet PO SCH (08:16)
[2020-07-03] MEDS: Furosemide 40 MG TAB PO SCH (08:16)
[2020-07-03] MEDS: Amiodarone 200 MG TAB PO SCH (08:16)
[2020-07-03] MEDS: Potassium Chloride 10 MEQ TAB PO SCH (08:16)
[2020-07-03] MEDS: Polyethylene Glycol 3350 17 GM Packet PO SCH (08:16)
[2020-07-03 12:03] VITALS: BP 161/69
== END 2020-07-03 11:10 | disposition home or self-care (01) | DRG 234 ==
LOC: CCL 05:33 → CCU 07:42 → 2NO 07-01 16:59
PROVIDERS: ADMIT Internal Medicine Cardiovascular Disease; ATTEND Internal Medicine Cardiovascular Disease
PROC: 021009W Bypass Coronary Artery, One Artery from Aorta with Autologous Venous Tissue, Open Approach (ICD-10-PCS; principal; 2020-06-29)
PROC: 4A023N7 Measurement of Cardiac Sampling and Pressure, Left Heart, Percutaneous Approach (ICD-10-PCS; 2020-06-29)
PROC: 02100Z9 Bypass Coronary Artery, One Artery from Left Internal Mammary, Open Approach (ICD-10-PCS; 2020-06-29)
PROC: 5A1221Z Performance of Cardiac Output, Continuous (ICD-10-PCS; 2020-06-29)
PROC: B2111ZZ Fluoroscopy of Multiple Coronary Arteries using Low Osmolar Contrast (ICD-10-PCS; 2020-06-29)
PROC: B2151ZZ Fluoroscopy of Left Heart using Low Osmolar Contrast (ICD-10-PCS; 2020-06-29)
DX: T82.855A Stenosis of coronary artery stent, initial encounter (principal); Z20.822 Contact with and (suspected) exposure to COVID-19; I25.10 Atherosclerotic heart disease of native coronary artery without angina pectoris; Z96.653 Presence of artificial knee joint, bilateral; Z96.642 Presence of left artificial hip joint; E78.00 Pure hypercholesterolemia, unspecified; K21.9 Gastro-esophageal reflux disease without esophagitis; E78.5 Hyperlipidemia, unspecified; Y83.1 Surgical operation with implant of artificial internal device as the cause of abnormal reaction of the patient, or of later complication, without mention of misadventure at the time of the procedure; J45.909 Unspecified asthma, uncomplicated; I48.91 Unspecified atrial fibrillation; R00.1 Bradycardia, unspecified; Z79.899 Other long term (current) drug therapy; Z79.82 Long term (current) use of aspirin; Z87.891 Personal history of nicotine dependence; Z28.21 Immunization not carried out because of patient refusal
CPT/HCPCS: 36415; 36416; 36430; 71045; 76942; 80048; 82805; 85025; 85347; 85610; 85730; 86850; 86900; 86901; 93005; 93010; 93458; 93798; 94640; 99152; J0282; J0690; J1100; J1160; J1642; J1644; J1650; J1815; J1885; J2001; J2150; J2250; J2405; J2440; J2720; J3010; J3370; J3475; J3480; J3490; J7070; J7620; P9035; P9045; Q9967; S0017; S0028

== ENCOUNTER 2021-03-14 10:03 | Outpatient (CLI) | payer OTHER | END 2021-03-14 10:04 | disposition home or self-care (01) | LOC: BICRAD 10:03 | PROVIDERS: ATTEND Nurse Practitioner Family | DX: R06.02 Shortness of breath (principal) | CPT/HCPCS: 71046 ==

== ENCOUNTER 2021-05-22 14:03 | Outpatient (CLI) | payer BC, OTHER ==
[2020-06-24 15:24] LABS: Hemoglobin 15.1 g/dL (13.5-17.5); Mean Corpuscular HGB CONC 33.8 g/dL (32.0-36.0); Mean Corpuscular Hemoglobin 32.8 pg (27.0-33.0); Mean Platelet Volume 9.6 fl (7.4-10.4); Platelet Count 209 10x3/uL (150-450); RBC Distribution Width 12.5 % (11.5-14.5); Red Blood Cell (RBC) Count 4.61 10x6/uL (4.32-5.72)
[2020-06-24 15:30] LABS: ALT (SGPT) 30 U/L (8-55); AST (SGOT) 18 U/L (5-34); Albumin 4.6 g/dL (3.4-4.8); Alkaline Phosphatase 59 U/L (40-110); Anion Gap 16 mmol/L (10-20); BUN (Urea Nitrogen) 21 mg/dL (8.4-25.7); Bilirubin, Total 1.7 mg/dL (0.2-1.2); Calc. Creatinine Clearance 0 mL/min (70-130); Carbon Dioxide 22 mmol/L (23-31); Chloride 107 mmol/L (98-107); Globulin 2.4 g/dL (2.4-3.5); Glucose 148 mg/dL (80-115); Potassium 4.3 mmol/L (3.5-5.1); Sodium 141 mmol/L (136-145)
[2020-06-25 02:32] LABS: SARS-CoV-2 PCR by NAA Not Detected (NotDetected)
== END 2021-05-22 14:04 | disposition home or self-care (01) ==
LOC: RAD 14:03
PROVIDERS: ATTEND Internal Medicine Critical Care Medicine
DX: R06.00 Dyspnea, unspecified (principal)
CPT/HCPCS: 71046; 80053; 85027; 93005; 93010; U0003; U0005

== ENCOUNTER 2024-02-10 12:21 | Outpatient (CLI) | payer MEDICARE | END 2024-02-10 12:22 | disposition home or self-care (01) | LOC: RAD 12:21 | PROVIDERS: ATTEND Internal Medicine Critical Care Medicine | DX: R06.00 Dyspnea, unspecified (principal) | CPT/HCPCS: 71046 ==

== ENCOUNTER 2025-02-10 13:01 | Outpatient (CLI) | payer MEDICARE | END 2025-02-10 13:02 | disposition home or self-care (01) | LOC: RAD 13:01 | PROVIDERS: ATTEND Internal Medicine Critical Care Medicine | DX: R06.00 Dyspnea, unspecified (principal) | CPT/HCPCS: 71046 ==